=== PATIENT | female | born 1965 | race Caucasian/White ===

== ENCOUNTER 2017-08-29 07:23 | Outpatient (CLI) | payer BC ==
--- NOTE | 2017-08-29 10:00 | CT ---
CT OF THE ABDOMEN AND PELVIS WITH AND WITHOUT CONTRAST: DATE: 08/29/17. COMPARISON: None. HISTORY: Crohn's disease, left upper quadrant pain. TECHNIQUE: Serial axial CT imaging obtained at 5 mm intervals from the lung bases through pubic symphysis with a nd without IV contrast, using VoLumen oral contrast for CT enterography protocol. FINDINGS: The visualized lung bases are unremarkable. Cholecystectomy clips are present. There is no free int raperitoneal air or fluid. The uterus is surgically absent. The precontrast imaging demonstrates no evidence for nephrolithiasis. There is subtle peripheral con tour irregularity involving the liver. There are also subtle varices in the perihepatic region. Fin dings are suspicious for mild cirrhotic change. No focal hepatic lesion is seen. There is a right paracardiac node measuring in the 9 mm range, stable. The spleen, pancreas, and adrenal glands are unremarkable. There is a duodenal diverticulum noted. The left kidney is unremarkable. There is a lesion within the mid pole of the right kidney, measuring 2.1 cm in transverse dimension, with precontrast Hounsfield units of 64. On post contrast imaging, this lesion demonstrates Hounsfie ld units ranging from 75 to 80 suggesting a mild degree of enhancement. This may be secondary to a t hin internal enhancing septation, as seen on coronal image 93. The uterus appears surgically absent. There is extensive diverticulosis of the descending colon and sigmoid colon with no evidence for diverticulitis. There is a suture line associated with the distal colon at the junction with the small bowel. There is no evidence for small bowel inflammatory change or obstruction. There is scattered atherosclerotic calcification of the abdominal aorta and its branches. There is n o lymphadenopathy in the abdomen or pelvis. The osseous structures demonstrate no acute findings. T here is degenerative change involving the lower lumbar spine including the facet joints. The right renal lesion described above, today measuring approximately 2.1 cm, measured approximately 9 mm on 04/16/13. IMPRESSION: 1. Peripheral contour irregularity of the liver with adjacent small varices. This suggests cirrhoti c change. 2. Nonspecific right renal lesion which is hyperdense on precontrast imaging and demonstrates mild i nternal enhancement, probably on the basis of an enhancing internal septation. This is felt to likel y be a hyperdense 2F cyst. However, further imaging assessment is advised for full characterization. Recommend an abdominal MRI with and without contrast for complete assessment of the enlarging right renal lesion. 3. No evidence for bowel obstruction or bowel inflammatory change. CODE T POS: [facility]
[2017-08-29] MEDS ORDERED: Iopamidol 370 76% 100 ML VIAL ONE (14:25)
== END 2017-08-29 07:24 | disposition home or self-care (01) ==
LOC: CT 07:23
PROVIDERS: ATTEND Internal Medicine Gastroenterology
DX: K50.00 Crohn's disease of small intestine without complications (principal); R13.10 Dysphagia, unspecified; R10.12 Left upper quadrant pain; K76.89 Other specified diseases of liver; N28.89 Other specified disorders of kidney and ureter
CPT/HCPCS: 74178

== ENCOUNTER 2018-09-16 18:07 | Inpatient (IN) | payer BC ==
[~2018-09-16 18:07] MED LIST: ISOVUE-370 76%-LOCM 1 ML ONE; Iopamidol 370 76% 50 ML VIAL FS ONE
[2018-09-16 19:15] LABS: #Eosinphils 0.2 thou/uL (0.0-0.7); #Lymphocytes 2.8 thou/uL (1.20-3.40); #Monocytes 0.8 thou/uL (0.11-0.59); #Neutrophils 7.3 thou/uL (1.40-6.50); %Basophils 0.2 % (0.0-1.0); %Eosinophils 1.8 % (0.0-10.0); %Lymphocytes 24.8 % (21.0-51.0); %Monocytes 7.4 % (0.0-10.0); %Neutrophils 65.8 % (42.0-75.0); Hemoglobin 13.1 g/dL (12.0-16.0); Mean Corpuscular HGB CONC 32.7 g/dL (32.0-36.0); Mean Corpuscular Hemoglobin 32.6 pg (27.0-31.0); Mean Corpuscular Volume 99.9 fL (78.0-98.0); Mean Platelet Volume 8.9 fL (7.4-10.4); Platelet Count 160 thou/uL (130-400); RBC Distribution Width 13.4 % (11.5-14.5); Red Blood Cell (RBC) Count 4.02 mill/uL (4.20-5.40); White Blood Cell (WBC) Count 11.1 thou/uL (4.8-10.8)
[2018-09-16 19:40] LABS: ALT (SGPT) 25 U/L (8-55); AST (SGOT) 24 U/L (5-34); Albumin 4.5 g/dL (3.5-5.0); Alkaline Phosphatase 72 U/L (40-150); Anion Gap 15 mmol/L (10-20); BUN (Urea Nitrogen) 12 mg/dL (9.8-20.1); Bilirubin, Total 0.4 mg/dL (0.2-1.2); Calc. Creatinine Clearance 0 mL/min (70-130); Calcium 9.6 mg/dL (7.8-10.44); Carbon Dioxide 22 mmol/L (22-29); Chloride 105 mmol/L (98-107); Estimated GFR-MDRD 77; Globulin 3.3 g/dL (2.4-3.5); Glucose 115 mg/dL (70-105); Potassium 3.7 mmol/L (3.5-5.1); Protein, Total 7.8 g/dL (6.0-8.3); Sodium 138 mmol/L (136-145)
[2018-09-16 20:19] LABS: Bilirubin Negative (Negative); Blood, Urine Negative (Negative); Clarity CLEAR (Clear); Glucose, Urine (Dipstick) Negative (Negative); Leukocyte Negative (Negative); Nitrite Negative (Negative); Protein, Urine (Dipstick) Negative (Neg-Trace); Specific Gravity, Urine 1.011 (1.002-1.036); Urobilinogen 0.2 mg/dL (0.2-1.0); pH, Urine 5.5 (5.0-9.0)
[2018-09-16] MEDS ORDERED: Ketorolac Tromethamine 30 MG/ML VIAL ONE (20:35)
[2018-09-16] MEDS ORDERED: Ondansetron PF 4 MG/2 ML Vial ONE (20:35)
[2018-09-16] MEDS ORDERED: Dexamethasone 10 MG/ML VIAL ONE (20:48)
--- NOTE | 2018-09-16 23:17 | CT ---
CT ABDOMEN AND PELVIS WITH CONTRAST: 09/16/18 HISTORY: Abdominal pain. COMPARISON: CT 08/01/17. FINDINGS: Lung bases are clear. No pericardial effusion. The spleen, liver, and pancreas are all unremarkable. The diverticulum of the third portion of the du odenum. The aortic contour is nonaneurysmal. There is inflammatory change along a large diverticulum of the sigmoid colon. There is also abnormal wall thickening circumferentially prior to and after the diverticulum which is new from the compariso n examination. There is concern for underlying possible malignant process versus colitis. Right renal interpolar hypodensity is similar. No retroperitoneal adenopathy. Aortoiliac contour is nonaneurysmal. IMPRESSION: 1. Abnormal wall thickening of the sigmoid colon which can be sequela of Crohn's disease given history, although colonoscopic evaluation is recommended as an underlying malignancy is of concern. 2. Mild inflammation along a large diverticulum of the sigmoid colon without perforation or absc ess formation. 3. Mild hyperemia of the sigmoid colon concerning for possible current active Crohn's disease. 4. The hypodensity of the right kidney on the coronal images has internal enhancement. This hypo density is new from 2013 and has grown since 2016 concerning for a low grade malignancy. Code T POS: [facility]
[2018-09-16] MEDS ORDERED: metroNIDAZOLE 500 MG/100 ML BAG ONE (23:29)
[2018-09-16] MEDS ORDERED: cefTRIAXone\\ROCEPHIN 1 GM VIAL ONE (23:29)
[2018-09-16] MEDS ORDERED: Zolpidem Tartrate 5 MG TAB PO PRN (23:46)
[2018-09-17] MEDS ORDERED: HumaLOG 300 UNITS/3 ML VIAL SC PRN ×2 (00:01)
[2018-09-17] MEDS ORDERED: Dextrose 50% Abboject 50 ML SYRINGE SLOW IVP PRN (00:01)
[2018-09-17] MEDS ORDERED: Dextrose 5% in Water 1,000 ML IV PRN (00:01)
[2018-09-17] MEDS: Acetaminophen 325 MG TAB PO PRN ×3 (01:12→14:34)
[2018-09-17 01:41] VITALS: BMI 30.7
--- NOTE | 2018-09-17 02:32 | HP ---
CHIEF COMPLAINT: Left lower quadrant pain as well as abdominal pain. HISTORY OF PRESENT ILLNESS: This is a 52-year-old female who presented to the hospital complaining of left lower quadrant pain. The patient had a CT scan done in the ER and was found to have normal bowel wall thickening and likely cause is for Crohn disease. The patient also had inflammatory and diverticulitis disease noted. The patient was seen in the ER, stated that she is having left lower quadrant pain. The patient states that she has had this issue before, however, is just due to Crohn flare ups as this is the first time she has a diverticular disease. The patient, otherwise, denies any nausea, vomiting, diarrhea, constipation, chest pain, fevers, chills, or shortness of breath. The patient states that she has no alleviating or aggravating factors. Denies any other associated symptoms or complaints. The patient is seen and examined in the ER. No family at bedside. All systems reviewed. All questions answered. REVIEW OF SYSTEMS: All systems reviewed, pertinent positive in HPI, otherwise negative. ALLERGIES: ALLERGIES TO CIPRO. SEE ALLERGY LIST. HOME MEDICATIONS: See MAR. PAST MEDICAL HISTORY: Crohn's, hypertension, and diabetes. FAMILY HISTORY: Positive for hypertension and diabetes. SOCIAL HISTORY: Denies alcohol, does smoke about half-pack cigarettes a day. PHYSICAL EXAMINATION: VITAL SIGNS: Blood pressure 130/76, pulse 97, respiratory rate of 19, temperature of 101.1, and O2 saturations of 96% on room air. GENERAL: The patient is lying in bed comfortably, in no acute distress. HEENT: Pupils are equal, round, and reactive to light and accommodation. Extraocular muscles intact. Oral cavity moist and pink. NECK: Supple, mobile, and nontender. Thyroid appreciated. CARDIOVASCULAR: S1 and S2. No murmurs, rubs, or gallops appreciated. Sinus tachycardia. RESPIRATORY: Clear to auscultation bilaterally. No increase in AP diameter. No respiratory distress. ABDOMEN: Positive bowel sounds. Left lower quadrant tenderness to deep palpation as well as no rebound or guarding. EXTREMITIES: 2+ peripheral pulses noted. No cyanosis, clubbing, or edema noted. NEUROLOGICAL: Cranial nerves II through XII intact. No loss of motor or sensory function. LABORATORY DATA: CBC within normal limits. Basic metabolic panel within normal limits. Urinalysis within normal limits. CT scan of abdomen, results as per HPI, explained above. ASSESSMENT: 1. Diverticulitis. 2. Crohn's. 3. Diabetes. 4. Hypertension. 5. Hyperlipidemia. PLAN: At this point in time, we will admit the patient to internal medicine team. We will start the patient on IV antibiotics. We will consult Dr. Gilbert, who is outpatient GI doctor. Continue her treatments with azathioprine as well as prednisone for her Crohn's. We will also start the patient on Flagyl for her diverticular disease. Blood cultures ordered and pending. Labs in the morning. The patient is stable and wishes to remain a full code. Case and plan were discussed the patient at length. No family at bedside. She understood and agreed with this plan. Job ID: [id number]
[2018-09-17] MEDS: metroNIDAZOLE 500 MG in Premix Bag 1 BAG IVPB SCH ×3 (05:11→22:28)
[2018-09-17 05:47] LABS: Anion Gap 14 mmol/L (10-20); BUN (Urea Nitrogen) 12 mg/dL (9.8-20.1); Calc. Creatinine Clearance 112 mL/min (70-130); Calcium 9.1 mg/dL (7.8-10.44); Carbon Dioxide 21 mmol/L (22-29); Chloride 107 mmol/L (98-107); Estimated GFR-MDRD 79; Glucose 260 mg/dL (70-105); Potassium 3.9 mmol/L (3.5-5.1); Sodium 138 mmol/L (136-145)
[2018-09-17 05:50] LABS: #Lymphocytes 0.8 thou/uL (1.20-3.40); #Monocytes 0.2 thou/uL (0.11-0.59); #Neutrophils 6.6 thou/uL (1.40-6.50); %Basophils 0.4 % (0.0-1.0); %Eosinophils 0.3 % (0.0-10.0); %Lymphocytes 10.6 % (21.0-51.0); %Monocytes 2.6 % (0.0-10.0); %Neutrophils 86.1 % (42.0-75.0); Hemoglobin 11.8 g/dL (12.0-16.0); Mean Corpuscular HGB CONC 33.6 g/dL (32.0-36.0); Mean Corpuscular Hemoglobin 33.5 pg (27.0-31.0); Mean Corpuscular Volume 99.7 fL (78.0-98.0); Mean Platelet Volume 8.9 fL (7.4-10.4); Platelet Count 129 thou/uL (130-400); RBC Distribution Width 13.3 % (11.5-14.5); Red Blood Cell (RBC) Count 3.54 mill/uL (4.20-5.40); White Blood Cell (WBC) Count 7.7 thou/uL (4.8-10.8)
[2018-09-17] MEDS ORDERED: predniSONE 20 MG TAB PO SCH (08:00)
[2018-09-17] MEDS ORDERED: azaTHIOprine 50 MG TAB PO SCH (09:00)
--- NOTE | 2018-09-17 14:07 | CON ---
DATE OF CONSULTATION: 09/17/2018 CHIEF COMPLAINT: Abdominal pain. HISTORY OF PRESENT ILLNESS: Ms. Griffin is a 52-year-old woman with a history of fibrostenotic Crohn's disease, status post ileocecectomy in March of 2011. She has most recently been treated with Stelara and reduce dose of azathioprine. She has been in clinical remission over the last few months and her faecal calprotectin was normal. She had a colonoscopy and EGD in 08/2017 that showed no evidence of active inflammatory bowel disease. She has been doing well in the last few months, until one week ago she started developing cramping, aching, left lower quadrant abdominal pain. This progressively worsened until yesterday morning. She started spiking fever, it is over 102. She has had no nausea or vomiting with this, but did have abdominal distention and bloating. She has had liquidy stools twice per day and yesterday she had liquidy stool with urgency and had an episode of loss of consciousness. She has had no blood in the stool. Her weight has been stable. She was incidentally noted to have an enlarging renal lesion by CT scan on presentation. PAST MEDICAL HISTORY: 1. Fibrostenotic Crohn's disease on chronic immunosuppression. 2. Cirrhosis of the liver likely secondary to fatty liver disease. There is no alcohol use. 3. Gastroesophageal reflux disease. 4. Diabetes mellitus. 5. Hypertension. 6. Hypothyroidism. PAST SURGICAL HISTORY: 1. Ileocecectomy. 2. Cholecystectomy. 3. Hysterectomy. FAMILY HISTORY: Negative for GI malignancy or liver disease. SOCIAL HISTORY: She smokes a 4th to one half pack daily. No alcohol. No drugs. ALLERGIES: CODEINE, DEMEROL, FENTANYL, MORPHINE, REMICADE, STADOL, SULFA, VERSED. OUTPATIENT MEDICATIONS: Aspirin, azathioprine 100 mg daily, Colestid 1 g twice daily, glimepiride, lisinopril, metformin, pantoprazole 40 mg daily, Stelara 90 mg once every 8 weeks, vitamin C. REVIEW OF SYSTEMS: Negative x10 systems reviewed except as stated in the history of present illness. PHYSICAL EXAMINATION: VITAL SIGNS: Temperature 98.1, pulse 63, blood pressure 108/71. GENERAL: She is in no acute distress. She is alert and oriented x3. HEENT: Eyes have no scleral icterus. Oropharynx is clear without lesions. No cervical or supraclavicular lymphadenopathy. LUNGS: Clear to auscultation bilaterally. HEART: Regular rate and rhythm without murmur. ABDOMEN: Soft. She is tender to palpation diffusely, more so in the left lower quadrant. At baseline, even when she is doing well, she has extreme tenderness to palpation. Her bowel sounds are present. EXTREMITIES: No lower extremity edema. NEUROLOGIC: Cranial nerves are grossly intact. LABORATORY DATA: White blood cell count is 7.7, down from 11.1 yesterday, hemoglobin 11.8, platelets 129. Her creatinine is 0.76, bilirubin 0.4, AST 24, ALT 25, alkaline phosphatase 72, albumin 4.5. IMPRESSION: 1. Left lower quadrant pain with inflammatory changes by CT scan around the diverticular segment of the sigmoid colon. She appears to have diverticulitis. Her Crohn's has been in remission up to this point. However, we did drop her azathioprine from 200 mg daily to 100 mg daily couple of months ago. I would at this point hold steroids and just treat with antibiotics. If she continues to improve with antibiotics alone, then hopefully we can avoid a course of steroids unnecessarily. We will check stool studies including Clostridium difficile and culture and faecal calprotectin. 2. Cirrhosis of the liver is well compensated, likely secondary to previous nonalcoholic steatohepatitis. 3. Diabetes mellitus. RECOMMENDATIONS: 1. Full liquid diet. 2. We will discontinue prednisone for now. 3. Continue metronidazole 500 mg 3 times daily and ceftriaxone 2 g once daily. She is allergic to ciprofloxacin. 4. Stool for culture, ova and parasites, C. diff and faecal protectin. 5. Further treatment plan based on her clinical course. Job ID: [id number]
[2018-09-17] MEDS: azaTHIOprine 50 MG TAB PO SCH (14:21)
[2018-09-17] MEDS: Sodium Chloride 0.9% 1,000 ML IV SCH (14:21)
--- NOTE | 2018-09-17 14:30 | PDOC.PN ---
- Subjective Encounter Start Date: 09/17/18 Encounter Start Time: 14:22 Subjective: abd pain improved, minimal diarrhea - Objective MAR Reviewed: Yes Vital Signs & Weight: Vital Signs (12 hours) Temp Pulse Resp BP BP Pulse Ox 09/17/18 11:39 98.1 F 63 18 108/71 99 09/17/18 08:20 99 09/17/18 07:41 97.9 F 65 18 114/60 99 09/17/18 04:54 97.8 F 71 16 107/65 96 Weight Weight 184 lb 12.8 oz Result Diagrams: 09/17/18 05:17 09/17/18 05:17 Additional Labs: Accuchecks 09/17/18 06:22 POC Glucose 248 H Phys Exam - Physical Examination Neck: no JVD Respiratory: clear to auscultation bilateral Cardiovascular: RRR, no significant murmur Gastrointestinal: positive bowel sounds tender, tk LLQ Musculoskeletal: no edema Dx/Plan (1) Diverticula of colon Code(s): K57.30 - DVRTCLOS OF LG INT W/O PERFORATION OR ABSCESS W/O BLEEDING Status: Acute (2) Crohns disease Code(s): K50.90 - CROHN'S DISEASE, UNSPECIFIED, WITHOUT COMPLICATIONS Status: Chronic Qualifiers: Gastrointestinal tract location: small intestine Digestive disease complication type: unspecified complication Qualified Code(s): K50.019 - Crohn 's disease of small intestine with unspecified complications (3) Abdominal pain Code(s): R10.9 - UNSPECIFIED ABDOMINAL PAIN Status: Acute Qualifiers: Abdominal location: left lower quadrant Qualified Code(s): R10.32 - Left lower quadrant pain (4) HTN (hypertension) Code(s): I10 - ESSENTIAL (PRIMARY) HYPERTENSION Status: Chronic Qualifiers: Hypertension type: essential hypertension Qualified Code(s): I10 - Essential (primary) hypertension (5) DM type 2 (diabetes mellitus, type 2) Status: Chronic Qualifiers: Diabetes mellitus snf insulin use: without terminal block assembler use Diabetes mellitus complication status: without complication Qualified Code(s): E11.9 - Type 2 diabetes mellitus without complications - Plan cont rocephin/flagyl iv -: cont accu/ss -: reinstitute amaryl today/ metformin tomorrow * .
[2018-09-17] MEDS: Glimepiride 4 MG TAB PO SCH (21:36)
--- NOTE | 2018-09-17 21:42 | CON ---
DATE OF CONSULTATION: 09/17/2018 REASON FOR CONSULTATION: Consultation was requested for renal mass. HISTORY OF PRESENT ILLNESS: The patient is a 52-year-old female, who was admitted with left lower quadrant pain, cramping, and fever, who is being worked up by GI. She does have a known history of Crohn's, so they are working up between inflammatory bowel disease versus diverticulitis. Overall, her abdominal pain and bloating are significantly better. She is still significantly tender, but overall feeling better with liquid stools, but less often unable to walk in the halls. Normally, she has frequency 5 to 6 hours and we reviewed how she needs to void more often up to 2 to 3 hours especially if there is concern for urinary infections. She has no history of stones, hematuria, or leakage, but she does have a history of prior UTIs, none in the last year. She is already taking cranberry tablets and sometimes Azo when there are concerns. Reviewed UTI prevention in detail to include cranberry extract tablets and Estrace, the latter of which we would not recommend at this time based on her infrequency of infections from urinary standpoint. She is known to have a lesion in the kidney since 2016 imaging and now has 2 more scans, the most recent of which was upon her admission yesterday and we reviewed these findings in detail. PAST MEDICAL HISTORY: Significant for Crohn's diagnosed around 2009, cirrhosis without any laboratory or clinical symptoms other than imaging, GERD, diabetes diagnosed about 2014. She denies hypertension. She takes lisinopril for kidney protection. PAST SURGICAL HISTORY: Includes ileectomy in 2010 and prior gallbladder resection. PAST OB HISTORY: Includes 2 vaginal deliveries. PAST ICT SUPPORT ENGINEER HISTORY: Included total vaginal hysterectomy and one oophorectomy done for bleeding issues not cancer. SOCIAL HISTORY: Reveals a quarter to half pack a day for 30 years. She has never smoked significantly more than that. She does not drink or use drugs. ALLERGIES: INCLUDE SULFA, WHICH GIVES HER RASH AND ITCH AND MULTIPLE DIFFERENT PAIN MEDICATIONS. REVIEW OF SYSTEMS: Shows she had a colonoscopy in August 2017 that showed no active inflammation. She had a mammogram in 2018 that was normal. She had a remote Pap smear that was normal. She has a known rectocele that affects her urination only when she evacuates her bowels, but otherwise is not problematic. She had chest pain yesterday when her abdomen was significantly distended, but none now. She has no cough or shortness of breath. She did have significant nausea, but without vomiting and she was bloated and distended. She also passed out with pain. She has had no blood in her stools, but they have been significantly liquid. MEDICATIONS: Include: 1. Aspirin. 2. Azathioprine. 3. Colestid. 4. Glimepiride. 5. Metformin. 6. Lisinopril. 7. Stelara. 8. Vitamin C. 9. Pantoprazole. FAMILY HISTORY: Mother at 69 of heart disease. Of note, she had her first SC at 43. Father at 77 of mesothelioma. Neither mom or siblings had cancer. PHYSICAL EXAMINATION: GENERAL: She is lying flat on the bed and is most comfortable in this position as opposed to sitting up. She has no diaphoresis or jaundice. VITAL SIGNS: T-max 98.1, heart rate 63, blood pressure 108/71, and saturating 99% on room air. Urine output has been listed as toilet. NECK: She has no JVD. She is in no apparent distress. HEART: Regular rate and rhythm. No murmurs, gallops, or rubs. LUNGS: Clear to auscultation bilaterally. ABDOMEN: Normoactive bowel sounds. It was mildly tender throughout without any rebound, tenderness, or peritoneal signs. Scars were noted including the right hand assist port that had wound healing troubles and now contraction, but no obvious hernia. She had no lower extremity edema, but a scar after trauma on her left lower extremity. LABORATORY VALUES: Reveal hemoglobin and hematocrit that are slightly anemic at 11.8 and 35.3, white count is come down from 11 to 7. BUN and creatinine are 12 and 0.76. Urinalysis from admission was negative by dip. Three CT scans were reviewed, one from October 06, 2015, that had contrast and another from August 29, 2017, that had both without and with contrast in the 3rd from August 2018, with contrast only. This is most likely a hyperdense cyst. However, on the Bosniak scale, it is likely a tube, but with slight uptake from before and after scan, such that Hounsfield units in 2016 are 60 to 80 with contrast, Hounsfield units in 2018 were 62 before and then 75 to 80 after. In-house with units with contrast in the most recent skin were around 70 and the growth patterns show no lesion that were 1.2 x 1.7 x 1.8 cm in 2016 and then 1.7 x 1.8 x 1.9 cm in 2018 and now 1.8 x 1.9 x 1.9 cm, giving us a growth rate in the last year 1 to 2 mm. Technically, this is a Bosniak II-III cyst given it's likely a hyperdense lesion but there is some minimal uptake with HFUs. We reviewed all these findings, concerning lesions, indications for biopsy, concerning growth rates, Bosniak scales, and monitoring at this time. I suspect this is a benign lesion, but cannot give a definitive conclusion of such with its minimal growth rate any years time. I would recommend repeating a scan without and with contrast in 1 year. At this time, I would not recommend any further studies or intervention. I reviewed all of this with her in detail and I reassured her, but did say that I would definitely want to see her in followup, but again I would put of repeat imaging for a year. We reviewed this as well as her immunosuppressants and how these can have some concern for increasing growth rate of cancers, but at this time without more definitive evidence and known benefit she gets clinically from them, I would recommend that Dr. Gilbert prescribe his Crohn's medications as indicated for her GI symptoms at this time, especially since the growth rate of this mass has been minimal and she has been on these medicines for quite some time. Job ID: [id number]
[2018-09-18] MEDS: cefTRIAXone\\ROCEPHIN 2 GM in Sodium Chloride 0.9% 100 ML IVPB SCH ×2 (00:30→23:16)
[2018-09-18] MEDS: Sodium Chloride 0.9% 1,000 ML IV SCH ×3 (00:34→21:04)
[2018-09-18] MEDS: metroNIDAZOLE 500 MG in Premix Bag 1 BAG IVPB SCH ×3 (05:17→21:01)
[2018-09-18] MEDS: azaTHIOprine 50 MG TAB PO SCH (09:59)
[2018-09-18] MEDS: Ascorbic Acid 500 mg Chewable Tablet PO SCH (10:01)
[2018-09-18] MEDS: Glimepiride 4 MG TAB PO SCH ×2 (10:02→21:02)
[2018-09-18] MEDS: valACYclovir 500 MG TAB PO SCH (10:03)
[2018-09-18] MEDS: Lisinopril 10 MG TAB PO SCH (10:03)
[2018-09-18 11:01] LABS: Ref Lab Test Ordered FECAL CALPROTECTIN; Reference Lab Name LABCORP
[2018-09-18] MEDS: Acetaminophen 325 MG TAB PO SCH ×3 (12:24→21:02)
[2018-09-18] MEDS: Ketorolac Tromethamine 30 MG/ML VIAL IVP PRN ×2 (12:25→21:08)
[2018-09-18] MEDS ORDERED: diphenhydrAMINE 25 MG CAP PO PRN (14:44)
[2018-09-18] MEDS: HYDROmorphone 2 MG TAB PO PRN ×2 (14:56→19:06)
[2018-09-18] MEDS: Ondansetron PF 4 MG/2 ML Vial IVP PRN (21:44)
--- NOTE | 2018-09-18 21:59 | PDOC.PN ---
- Subjective Encounter Start Date: 09/18/18 Encounter Start Time: 13:00 Patient seen and examined for Acute Diverticulitis. Abd pain worsening. Diarrhea /Nausea +. No other complaints. No overnight events - Objective MAR Reviewed: Yes Vital Signs & Weight: Vital Signs (12 hours) Temp Pulse Resp BP BP BP Pulse Ox 09/18/18 20:38 99 09/18/18 20:05 98.4 F 63 16 114/70 99 09/18/18 15:45 98.1 F 64 16 101/66 97 09/18/18 11:16 98.3 F 67 16 111/63 99 09/18/18 10:03 114/74 Weight Weight 184 lb 12.8 oz I&O: 09/17/18 09/18/18 09/19/18 06:59 06:59 06:59 Intake Total 2900 1750 Balance 2900 1750 Result Diagrams: 09/17/18 05:17 09/17/18 05:17 Additional Labs: Accuchecks 09/18/18 09/18/18 09/18/18 20:21 16:12 11:43 POC Glucose 82 120 H 148 H 09/18/18 05:39 POC Glucose 109 Radiology Reviewed by me: Yes (CT abd - Diverticulitis) Phys Exam - Physical Examination Mild distress due to abd pain Respiratory: no wheezing, no rhonchi Cardiovascular: RRR, no rub Gastrointestinal: soft, positive bowel sounds lower quad tenderness, no guarding/rigidity Musculoskeletal: no edema Neurological: moves all 4 limbs Dx/Plan - Plan DVT proph w/SCDs 1. Sepsis due to Acute Diverticulitis 2. Cryptosporidium infection 3. h/o Crohns disease 4. Obesity BMI 30.8 5. Abd pain due to #1 6. HTN 7. GERD 8. DM2 9. Thrombocytopenia/CKD 2/Other issues per previous notes PLAN: Cont IV Atbx Add Alinia Pain control with Toradol and PO Dilaudid - Unable to tolerate other pain meds Cont IVF AM labs Cont sliding scale Cont other meds as below GI input appreciated Review of Systems - Review of Systems Respiratory: negative: Cough, Dry, Shortness of Breath, Hemoptysis, SOB with Excertion, Pleuritic Pain, Sputum, Wheezing Cardiovascular: negative: chest pain, palpitations, orthopnea, paroxysmal nocturnal dyspnea, edema, light headedness, other - Medications/Allergies Allergies/Adverse Reactions: Allergies Allergy/AdvReac Type Severity Reaction Status Date / Time ciprofloxacin Allergy Severe Short of Verified 04/19/13 15:37 Breath butorphanol tartrate Allergy Verified 04/16/13 19:11 [From Stadol] hydrocodone bitartrate Allergy Verified 04/16/13 19:37 [From Vicodin] meperidine HCl [From Demerol] Allergy Verified 04/16/13 19:11 morphine Allergy Verified 04/16/13 19:11 Medications: Current Medications Acetaminophen (Tylenol) 650 mg PO Q4H PRN PRN Reason: Headache/Fever/Mild Pain (1-3) Last Admin: 09/17/18 14:34 Dose: 650 mg Acetaminophen (Tylenol) 650 mg PO QID [facility] Last Admin: 09/18/18 21:02 Dose: 650 mg Ascorbic Acid (Vitamin C) 1,000 mg PO QAM [facility] Last Admin: 09/18/18 10:01 Dose: 1,000 mg Azathioprine (Imuran) 100 mg PO DAILY [facility] Last Admin: 09/18/18 09:59 Dose: 100 mg Dextrose/Water (Dextrose 50%) 25 gm SLOW IVP PRN PRN PRN Reason: Hypoglycemia Diphenhydramine HCl (Benadryl) 25 mg PO Q6H PRN PRN Reason: Itching & Insomnia Glimepiride (Amaryl) 4 mg PO BID [facility] Last Admin: 09/18/18 21:02 Dose: 4 mg Glucagon (Glucagon) 1 mg IM PRN PRN PRN Reason: Hypoglycemia Hydromorphone HCl (Dilaudid) 2 mg PO Q4H PRN PRN Reason: Severe Pain (7-10) Last Admin: 09/18/18 19:06 Dose: 2 mg Metronidazole 500 mg/ Device 100 mls @ 100 mls/hr IVPB Q8HR [facility] Last Admin: 09/18/18 21:01 Dose: 100 mls Dextrose/Water (D5w) 1,000 mls @ 0 mls/hr IV .Q0M PRN PRN Reason: Hypoglycemia Ceftriaxone Sodium 2 gm/ (Sodium Chloride) 100 mls @ 200 mls/hr IVPB Q24HR [facility] Last Admin: 09/18/18 00:30 Dose: 100 mls Sodium Chloride (Normal Saline 0.9%) 1,000 mls @ 100 mls/hr IV .Q10H [facility] Last Admin: 09/18/18 21:04 Dose: Not Given Insulin Human Lispro (Humalog) 0 units SC .MILD SLIDING SCALE PRN PRN Reason: Mild Correctional Scale Insulin Human Lispro (Humalog) 0 units SC .BEDTIME SLIDING SC PRN PRN Reason: Bedtime Correctional Scale Ketorolac Tromethamine (Toradol) 15 mg IVP Q6H PRN PRN Reason: Pain Stop: 09/23/18 12:11 Last Admin: 09/18/18 21:08 Dose: 15 mg Lisinopril (Zestril) 10 mg PO DAILY [facility] Last Admin: 09/18/18 10:03 Dose: 10 mg Nitazoxanide (Alinia) 500 mg PO BID [facility] Last Admin: 09/18/18 21:02 Dose: 500 mg Ondansetron HCl (Zofran) 4 mg IVP Q6H PRN PRN Reason: Nausea/Vomiting Last Admin: 09/18/18 21:44 Dose: 4 mg Pantoprazole Sodium (Protonix) 40 mg PO DAILY [facility] Last Admin: 09/18/18 10:03 Dose: 40 mg Sodium Chloride (Flush - Normal Saline) 10 ml IVF Q12HR PRN PRN Reason: Saline Flush Valacyclovir HCl (Valtrex) 500 mg PO DAILY [facility] Last Admin: 09/18/18 10:03 Dose: 500 mg Zolpidem Tartrate (Ambien) 5 mg PO HSPRN PRN PRN Reason: Insomnia
--- NOTE | 2018-09-18 23:40 | PRG ---
DATE OF SERVICE: 09/18/2018 SUBJECTIVE: Ms. Griffin started having pain earlier this morning and has had significant abdominal pain during the day today and ultimately required taking morphine for it. She has had around 6 liquidy stools today that were nonbloody. No chest pain or shortness of breath. PHYSICAL EXAMINATION: VITAL SIGNS: Temperature 98.4, pulse 63, blood pressure 114/70. GENERAL: She is in no acute distress. Alert and oriented x3. LUNGS: Clear to auscultation bilaterally. HEART: Regular rate and rhythm without murmur. ABDOMEN: Soft. She is tender to palpation diffusely. Bowel sounds are present. EXTREMITIES: No lower extremity edema. LABORATORY DATA: White blood cell count has improved from 11.1 to 7.7, hemoglobin 11.8, platelets 129, creatinine 0.76. IMPRESSION: 1. Acute diverticulitis. The CT scan findings are most consistent with acute diverticulitis. We will continue to treat this with antibiotics. 2. Renal lesion. This is been evaluated by Dr. Peterson and followup CT in 1 year is recommended. 3. Crohn's disease. She has been in remission on Stelara every 8 weeks and azathioprine 100 mg daily. She did have clinical improvement after receiving steroids in the ER initially the night before last. It is possible that she has developed new left-sided colonic Crohn's, but overall I think it is more likely that she has acute diverticulitis. If she fails to improve with the antibiotics and the pain continues to worsen, then colonoscopy or flex sig can be considered to assess for mucosal disease. However, ideally, we would avoid colonoscopy in the setting of diverticulitis to reduce the risk of perforation. For now, we will continue to hold the steroids and treat with antibiotics. 4. Stool was positive for Cryptosporidium antigen. Given her chronic immunosuppression and this will require 2 weeks of treatment period, she has been started on Alinia twice daily. 5. Cirrhosis of the liver, appears well compensated. RECOMMENDATIONS: 1. Continue ceftriaxone and metronidazole. 2. Continue nitazoxanide 500 mg twice daily for 14 days. 3. Continue azathioprine. 4. She is on a full liquid diet, but is really not tolerating much at this point. We will continue the current diet. Job ID: [id number]
[2018-09-19 04:57] LABS: #Eosinphils 0.1 thou/uL (0.0-0.7); #Lymphocytes 1.2 thou/uL (1.20-3.40); #Monocytes 0.5 thou/uL (0.11-0.59); %Basophils 0.2 % (0.0-1.0); %Eosinophils 2.1 % (0.0-10.0); %Lymphocytes 19.6 % (21.0-51.0); %Monocytes 9.1 % (0.0-10.0); %Neutrophils 68.9 % (42.0-75.0); Mean Corpuscular HGB CONC 33.4 g/dL (32.0-36.0); Mean Corpuscular Hemoglobin 33.4 pg (27.0-31.0); Mean Corpuscular Volume 99.8 fL (78.0-98.0); Mean Platelet Volume 9.4 fL (7.4-10.4); Platelet Count 127 thou/uL (130-400); RBC Distribution Width 13.3 % (11.5-14.5); Red Blood Cell (RBC) Count 3.29 mill/uL (4.20-5.40); White Blood Cell (WBC) Count 5.9 thou/uL (4.8-10.8)
[2018-09-19] MEDS: metroNIDAZOLE 500 MG in Premix Bag 1 BAG IVPB SCH ×3 (05:08→21:38)
[2018-09-19 05:15] LABS: Phosphorus 3.9 mg/dL (2.3-4.7)
[2018-09-19] MEDS: Sodium Chloride 0.9% 1,000 ML IV SCH ×2 (05:16→13:44)
[2018-09-19 05:24] LABS: ALT (SGPT) 15 U/L (8-55); AST (SGOT) 14 U/L (5-34); Albumin 3.4 g/dL (3.5-5.0); Alkaline Phosphatase 49 U/L (40-150); Anion Gap 12 mmol/L (10-20); BUN (Urea Nitrogen) 7 mg/dL (9.8-20.1); Bilirubin, Total 0.3 mg/dL (0.2-1.2); Calc. Creatinine Clearance 123 mL/min (70-130); Calcium 8.3 mg/dL (7.8-10.44); Carbon Dioxide 22 mmol/L (22-29); Chloride 110 mmol/L (98-107); Estimated GFR-MDRD 89; Globulin 2.4 g/dL (2.4-3.5); Glucose 120 mg/dL (70-105); Magnesium 1.6 mg/dL (1.6-2.6); Potassium 3.5 mmol/L (3.5-5.1); Protein, Total 5.8 g/dL (6.0-8.3); Sodium 140 mmol/L (136-145)
[2018-09-19] MEDS: Glimepiride 4 MG TAB PO SCH (08:18)
[2018-09-19] MEDS: valACYclovir 500 MG TAB PO SCH (08:18)
[2018-09-19] MEDS: Acetaminophen 325 MG TAB PO SCH ×4 (08:18→21:38)
[2018-09-19] MEDS: Ascorbic Acid 500 mg Chewable Tablet PO SCH (08:18)
[2018-09-19] MEDS: Lisinopril 10 MG TAB PO SCH (08:19)
[2018-09-19] MEDS: azaTHIOprine 50 MG TAB PO SCH (08:19)
[2018-09-19] MEDS: Ketorolac Tromethamine 30 MG/ML VIAL IVP PRN (10:45)
--- NOTE | 2018-09-19 16:48 | PRG ---
DATE OF SERVICE: 09/19/2018 SUBJECTIVE: Ms. Griffin had ongoing pain last night and she took Dilaudid, which did help significantly. Today, she has required no IV pain medication and she is feeling better overall. She has less abdominal distention and bloating. She is still having the diarrhea with 4 or 5 stools through the course of the day. OBJECTIVE: VITAL SIGNS: Temperature 98.5, pulse 76, and blood pressure 137/80. GENERAL: She is in no acute distress. Alert and oriented x3. HEENT: Eyes have no scleral icterus. LUNGS: Clear to auscultation bilaterally. HEART: Regular rate and rhythm without murmur. ABDOMEN: Soft, diffuse tenderness more so in the left lower quadrant. EXTREMITIES: No lower extremity edema. LABORATORY DATA: White blood cell count 5.9, hemoglobin 11.0, and platelets 127. Creatinine 0.69, albumin 3.4. IMPRESSION: 1. Sigmoid diverticulitis. 2. Cryptosporidium colitis. 3. Crohn disease. She has been in remission on Stelara and azathioprine up to this point. Last colonoscopy showed normal mucosa in the left colon. She did initially feel better after the Decadron in the emergency room, but she has been off the steroids for the last couple of days now. Her pain was worsening, but now she is doing better again today. 4. Cirrhosis of the liver, well compensated. RECOMMENDATIONS: 1. Continue ceftriaxone and metronidazole for diverticulitis. 2. Continue nitazoxanide for Cryptosporidium. Given her immune suppression, this should be a 2-week course. 3. Given that she is having symptomatic improvement today, we will continue with the current course of treatment. We will continue with full liquid diet. She is diabetic, but she normally does not take an artificial sweeteners because they upset her stomach and can cause diarrhea as well. We will try her back on a regular full liquid diet. 4. If her pain and diarrhea worsen, then the plan is to perform colonoscopy to evaluate for active Crohn disease. I will hold off this today as she is showing clinical improvement today. If she is unable to start advancing her diet tomorrow and her pain is worsening again, then we will schedule colonoscopy for Friday. Job ID: [id number]
--- NOTE | 2018-09-19 19:06 | PDOC.PN ---
- Subjective Encounter Start Date: 09/19/18 Encounter Start Time: 14:00 Patient seen and examined for Acute diverticulitis. Diarrhea +. Poor appetite. Lower abd pain +. Feels slightly better. No overnight events - Objective MAR Reviewed: Yes Vital Signs & Weight: Vital Signs (12 hours) Temp Pulse Resp BP BP Pulse Ox 09/19/18 15:20 98.1 F 79 16 142/80 H 97 09/19/18 11:39 98.5 F 76 14 137/80 97 09/19/18 10:51 98.5 F 09/19/18 08:19 134/78 94 L 09/19/18 07:26 99.1 F 90 14 134/78 94 L Weight Weight 184 lb 12.8 oz I&O: 09/18/18 09/19/18 09/20/18 06:59 06:59 06:59 Intake Total 2900 1750 1090 Balance 2900 1750 1090 Result Diagrams: 09/19/18 04:11 09/19/18 04:11 Additional Labs: Accuchecks 09/19/18 09/19/18 09/18/18 11:39 05:41 20:21 POC Glucose 105 126 H 82 Phys Exam - Physical Examination Constitutional: NAD Respiratory: no wheezing, no rhonchi Cardiovascular: RRR, no rub Gastrointestinal: soft, positive bowel sounds lower quad tenderness, no rebound/guarding Musculoskeletal: no edema Neurological: non-focal, moves all 4 limbs Dx/Plan - Plan out of bed/ambulate, DVT proph w/SCDs 1. Sepsis due to Acute Sigmoid Diverticulitis 2. Cryptosporidium colitis 3. h/o Crohns disease 4. Obesity BMI 30.8 5. Abd pain due to #1 6. HTN 7. GERD 8. DM2 9. Thrombocytopenia/CKD 2/Other issues per previous notes PLAN: Cont IV Ceftriaxone/Flagyl Cont Alinia Pain control Cont IVF - reduce rate to 70 ml/hr Reduce Amaryl dose to 2 mg BID Cont sliding scale and other meds as below Review of Systems - Review of Systems Respiratory: negative: Cough, Dry, Shortness of Breath, Hemoptysis, SOB with Excertion, Pleuritic Pain, Sputum, Wheezing Cardiovascular: negative: chest pain, palpitations, orthopnea, paroxysmal nocturnal dyspnea, edema, light headedness, other - Medications/Allergies Allergies/Adverse Reactions: Allergies Allergy/AdvReac Type Severity Reaction Status Date / Time ciprofloxacin Allergy Severe Short of Verified 04/19/13 15:37 Breath butorphanol tartrate Allergy Verified 04/16/13 19:11 [From Stadol] hydrocodone bitartrate Allergy Verified 04/16/13 19:37 [From Vicodin] meperidine HCl [From Demerol] Allergy Verified 04/16/13 19:11 morphine Allergy Verified 04/16/13 19:11 Medications: Current Medications Acetaminophen (Tylenol) 650 mg PO Q4H PRN PRN Reason: Headache/Fever/Mild Pain (1-3) Last Admin: 09/17/18 14:34 Dose: 650 mg Acetaminophen (Tylenol) 650 mg PO QID [facility] Last Admin: 09/19/18 16:39 Dose: 650 mg Ascorbic Acid (Vitamin C) 1,000 mg PO QAM [facility] Last Admin: 09/19/18 08:18 Dose: 1,000 mg Azathioprine (Imuran) 100 mg PO DAILY [facility] Last Admin: 09/19/18 08:19 Dose: 100 mg Cyanocobalamin (Vitamin B-12) 1,000 mcg PO DAILY [facility] Dextrose/Water (Dextrose 50%) 25 gm SLOW IVP PRN PRN PRN Reason: Hypoglycemia Diphenhydramine HCl (Benadryl) 25 mg PO Q6H PRN PRN Reason: Itching & Insomnia Folic Acid (Folvite) 1 mg PO DAILY [facility] Glimepiride (Amaryl) 4 mg PO BID [facility] Last Admin: 09/19/18 08:18 Dose: 4 mg Glucagon (Glucagon) 1 mg IM PRN PRN PRN Reason: Hypoglycemia Hydromorphone HCl (Dilaudid) 2 mg PO Q4H PRN PRN Reason: Severe Pain (7-10) Last Admin: 09/18/18 19:06 Dose: 2 mg Metronidazole 500 mg/ Device 100 mls @ 100 mls/hr IVPB Q8HR [facility] Last Admin: 09/19/18 13:47 Dose: 100 mls Dextrose/Water (D5w) 1,000 mls @ 0 mls/hr IV .Q0M PRN PRN Reason: Hypoglycemia Ceftriaxone Sodium 2 gm/ (Sodium Chloride) 100 mls @ 200 mls/hr IVPB Q24HR [facility] Last Admin: 09/18/18 23:16 Dose: 100 mls Sodium Chloride (Normal Saline 0.9%) 1,000 mls @ 70 mls/hr IV .[id number] [facility] Last Admin: 09/19/18 13:44 Dose: 1,000 mls Insulin Human Lispro (Humalog) 0 units SC .MILD SLIDING SCALE PRN PRN Reason: Mild Correctional Scale Insulin Human Lispro (Humalog) 0 units SC .BEDTIME SLIDING SC PRN PRN Reason: Bedtime Correctional Scale Ketorolac Tromethamine (Toradol) 15 mg IVP Q6H PRN PRN Reason: Pain Stop: 09/23/18 12:11 Last Admin: 09/19/18 10:45 Dose: 15 mg Lisinopril (Zestril) 10 mg PO DAILY [facility] Last Admin: 09/19/18 08:19 Dose: 10 mg Nitazoxanide (Alinia) 500 mg PO BID [facility] Last Admin: 09/19/18 08:18 Dose: 500 mg Ondansetron HCl (Zofran) 4 mg IVP Q6H PRN PRN Reason: Nausea/Vomiting Last Admin: 09/18/18 21:44 Dose: 4 mg Pantoprazole Sodium (Protonix) 40 mg PO DAILY [facility] Last Admin: 09/19/18 08:19 Dose: 40 mg Sodium Chloride (Flush - Normal Saline) 10 ml IVF Q12HR PRN PRN Reason: Saline Flush Valacyclovir HCl (Valtrex) 500 mg PO DAILY [facility] Last Admin: 09/19/18 08:18 Dose: 500 mg
[2018-09-20] MEDS: cefTRIAXone\\ROCEPHIN 2 GM in Sodium Chloride 0.9% 100 ML IVPB SCH (00:19)
[2018-09-20] MEDS: metroNIDAZOLE 500 MG in Premix Bag 1 BAG IVPB SCH ×3 (05:37→21:50)
[2018-09-20] MEDS: Sodium Chloride 0.9% 1,000 ML IV SCH ×2 (05:37→14:59)
[2018-09-20] MEDS: Lisinopril 10 MG TAB PO SCH (08:41)
[2018-09-20] MEDS: azaTHIOprine 50 MG TAB PO SCH (08:42)
[2018-09-20] MEDS: Cyanocobalamin (Vitamin B-12) 1,000 MCG TAB PO SCH (08:42)
[2018-09-20] MEDS: Acetaminophen 325 MG TAB PO SCH ×4 (08:42→21:50)
[2018-09-20] MEDS: Folic Acid 1 MG TAB PO SCH (08:42)
[2018-09-20] MEDS: Ascorbic Acid 500 mg Chewable Tablet PO SCH (08:43)
[2018-09-20] MEDS: Glimepiride 2 MG TAB PO SCH ×2 (08:43→17:08)
[2018-09-20] MEDS: valACYclovir 500 MG TAB PO SCH (08:43)
--- NOTE | 2018-09-20 13:25 | PRG ---
DATE OF SERVICE: 09/20/2018 SUBJECTIVE: Ms. Griffin has continued pain in the left lower quadrant, radiates across to the right lower quadrant. The pain is severe at times and becomes much worse when she has to have a bowel movement. She still has been having some liquidy stools. She threw up when she took her medicines this morning small amount. She really has not taken anything by mouth other than a small amount of clear liquids through the course of her hospital course and has had nothing else today. OBJECTIVE: VITAL SIGNS: Temperature 98.6, pulse 70, blood pressure 123/71. GENERAL: She is in no acute distress. LUNGS: Clear to auscultation bilaterally. HEART: Regular rate and rhythm. ABDOMEN: Tender throughout without guarding. Bowel sounds are present. EXTREMITIES: No lower extremity edema. LABORATORY DATA: White blood cell count 5.9, hemoglobin 11.0, platelets 127. IMPRESSION: Sigmoid diverticulitis versus flare of Crohn colitis. She also has cryptosporidium enteritis by positive stool sample. She has failed to respond adequately to antibiotics at this point and continues to have ongoing pain and is not adequately progressing. Therefore, I will plan for flexible sigmoidoscopy today to evaluate for mucosal colitis indicating Crohn's as the cause of her current symptoms which would indicate steroids. Up to this point, I have been trying to avoid steroids administration unnecessarily, however, we need to determine now if this is Crohn's or not causing her symptoms. RECOMMENDATIONS: 1. Flexible sigmoidoscopy today. 2. Continue antibiotics. Job ID: [id number]
[2018-09-20] MEDS: Fleet Enema 133 ML BOT FS SCH ×2 (14:16→14:55)
[2018-09-20] MEDS ORDERED: PROPOFOL 200 MG/20 ML VIAL ONE (14:54)
[2018-09-20] MEDS ORDERED: Promethazine HCl 25 MG/ML VIAL SLOW IVP PRN (16:19)
[2018-09-20] MEDS ORDERED: Promethazine HCl 25 MG/ML VIAL IM PRN (16:19)
[2018-09-20] MEDS ORDERED: Ondansetron HCl/PF 4 MG/2 ML Vial IVP PRN (16:19)
--- NOTE | 2018-09-20 17:04 | PDOC.PN ---
- Subjective Encounter Start Date: 09/20/18 Encounter Start Time: 10:30 Patient seen and examined for Sepsis. Feels gen weak. Abd pain +. Poor appetite. No new complaints. No overnight events - Objective MAR Reviewed: Yes Vital Signs & Weight: Vital Signs (12 hours) Temp Pulse Resp BP BP Pulse Ox 09/20/18 16:45 97.8 F 62 16 133/73 99 09/20/18 11:32 98.6 F 70 12 123/71 97 09/20/18 08:43 94 L 09/20/18 08:41 140/72 09/20/18 07:48 98.7 F 75 14 140/72 94 L Weight Weight 184 lb 12.8 oz I&O: 09/19/18 09/20/18 09/21/18 06:59 06:59 06:59 Intake Total 1750 2290 Balance 1750 2290 Result Diagrams: 09/19/18 04:11 09/19/18 04:11 Additional Labs: Accuchecks 09/20/18 09/20/18 09/19/18 11:56 05:29 20:55 POC Glucose 120 H 136 H 151 H 09/19/18 17:02 POC Glucose 86 Phys Exam - Physical Examination Constitutional: NAD Respiratory: no wheezing, no rhonchi Cardiovascular: RRR, no rub Gastrointestinal: soft, positive bowel sounds tend in lower quad, no guarding Musculoskeletal: no edema Neurological: moves all 4 limbs Dx/Plan - Plan DVT proph w/SCDs 1. Sepsis due to Acute Sigmoid Diverticulitis - on IV Ceftriaxone/Flagyl 2. Cryptosporidium colitis - on Alinia 3. h/o Crohns disease 4. Obesity BMI 30.8 5. Abd pain due to #1 6. HTN 7. GERD 8. DM2 9. Thrombocytopenia/CKD 2/Other issues per previous notes PLAN: Cont current Atbx Pain control Cont IVF Cont Amaryl and sliding scale Cont other meds as below AM labs Review of Systems - Review of Systems Respiratory: negative: Cough, Dry, Shortness of Breath, Hemoptysis, SOB with Excertion, Pleuritic Pain, Sputum, Wheezing Cardiovascular: negative: chest pain, palpitations, orthopnea, paroxysmal nocturnal dyspnea, edema, light headedness, other - Medications/Allergies Allergies/Adverse Reactions: Allergies Allergy/AdvReac Type Severity Reaction Status Date / Time ciprofloxacin Allergy Severe Short of Verified 10/21/13 15:37 Breath butorphanol tartrate Allergy Verified 04/16/13 19:11 [From Stadol] hydrocodone bitartrate Allergy Verified 04/16/13 19:37 [From Vicodin] meperidine HCl [From Demerol] Allergy Verified 04/16/13 19:11 morphine Allergy Verified 04/16/13 19:11 Medications: Current Medications Acetaminophen (Tylenol) 650 mg PO Q4H PRN PRN Reason: Headache/Fever/Mild Pain (1-3) Last Admin: 09/17/18 14:34 Dose: 650 mg Acetaminophen (Tylenol) 650 mg PO QID [facility] Last Admin: 09/20/18 13:39 Dose: 650 mg Ascorbic Acid (Vitamin C) 1,000 mg PO QAM [facility] Last Admin: 09/20/18 08:43 Dose: 1,000 mg Azathioprine (Imuran) 100 mg PO DAILY [facility] Last Admin: 09/20/18 08:42 Dose: 100 mg Cyanocobalamin (Vitamin B-12) 1,000 mcg PO DAILY [facility] Last Admin: 09/20/18 08:42 Dose: 1,000 mcg Dextrose/Water (Dextrose 50%) 25 gm SLOW IVP PRN PRN PRN Reason: Hypoglycemia Diphenhydramine HCl (Benadryl) 25 mg PO Q6H PRN PRN Reason: Itching & Insomnia Folic Acid (Folvite) 1 mg PO DAILY [facility] Last Admin: 09/20/18 08:42 Dose: 1 mg Glimepiride (Amaryl) 2 mg PO BID-[facility] Last Admin: 09/20/18 08:43 Dose: 2 mg Glucagon (Glucagon) 1 mg IM PRN PRN PRN Reason: Hypoglycemia Hydromorphone HCl (Dilaudid) 2 mg PO Q4H PRN PRN Reason: Severe Pain (7-10) Last Admin: 09/18/18 19:06 Dose: 2 mg Metronidazole 500 mg/ Device 100 mls @ 100 mls/hr IVPB Q8HR [facility] Last Admin: 09/20/18 13:40 Dose: 100 mls Dextrose/Water (D5w) 1,000 mls @ 0 mls/hr IV .Q0M PRN PRN Reason: Hypoglycemia Ceftriaxone Sodium 2 gm/ (Sodium Chloride) 100 mls @ 200 mls/hr IVPB Q24HR [facility] Last Admin: 09/20/18 00:19 Dose: 100 mls Sodium Chloride (Normal Saline 0.9%) 1,000 mls @ 70 mls/hr IV .[id number] [facility] Last Admin: 09/20/18 14:59 Dose: Not Given Insulin Human Lispro (Humalog) 0 units SC .MILD SLIDING SCALE PRN PRN Reason: Mild Correctional Scale Insulin Human Lispro (Humalog) 0 units SC .BEDTIME SLIDING SC PRN PRN Reason: Bedtime Correctional Scale Lisinopril (Zestril) 10 mg PO DAILY [facility] Last Admin: 09/20/18 08:41 Dose: 10 mg Nitazoxanide (Alinia) 500 mg PO BID [facility] Last Admin: 09/20/18 09:45 Dose: 500 mg Ondansetron HCl (Zofran) 4 mg IVP Q6H PRN PRN Reason: Nausea/Vomiting Last Admin: 09/18/18 21:44 Dose: 4 mg Ondansetron HCl (Pacu-Zofran) 4 mg IVP ONE PRN PRN Reason: Nausea/Vomiting Stop: 09/20/18 19:19 Pantoprazole Sodium (Protonix) 40 mg PO DAILY [facility] Last Admin: 09/20/18 08:42 Dose: 40 mg Promethazine HCl (Pacu-Phenergan) 6.25 mg SLOW IVP ONE PRN PRN Reason: Nausea/Vomiting Stop: 09/20/18 19:19 Promethazine HCl (Pacu-Phenergan) 6.25 mg IM ONE PRN PRN Reason: Nausea/Vomiting Stop: 09/20/18 19:19 Sodium Chloride (Flush - Normal Saline) 10 ml IVF Q12HR PRN PRN Reason: Saline Flush Valacyclovir HCl (Valtrex) 500 mg PO DAILY [facility] Last Admin: 09/20/18 08:43 Dose: 500 mg
--- NOTE | 2018-09-20 18:20 | OP ---
DATE OF PROCEDURE: 09/20/2018 PROCEDURE PERFORMED: Colonoscopy. PREOPERATIVE DIAGNOSIS: Assess for activity of Crohn disease. The patient with suspected diverticulitis versus infectious colitis versus Crohn colitis. DESCRIPTION OF PROCEDURE: Informed consent was obtained. The patient was sedated with total intravenous anesthesia. The rectal exam was performed and was normal. The preparation quality was adequate. She was only prepped with an enema. There was no significant residual stool in the colon. The colonoscope was advanced to the anastomosis without difficulty. The colonic mucosa appeared normal throughout. There was a very edematous segment, which was somewhat narrowed in the mid sigmoid colon in an area of diverticulosis. This is consistent with diverticulitis. Retroflexed views in the rectum are unremarkable. IMPRESSION: 1. Edematous segment in the mid sigmoid colon in the cindy-diverticular segment consistent with diverticulitis. 2. Otherwise, normal colonic mucosa without evidence of active Crohn disease or inflammatory colitis or significant infectious colitis causing ulceration or inflammation. RECOMMENDATIONS: 1. Continue antibiotics for diverticulitis. 2. Continue the Alinia for the Cryptosporidium positive stool. 3. Continue to avoid steroids for now. 4. Advance her diet as she tolerates. Job ID: [id number]
[2018-09-21] MEDS: cefTRIAXone\\ROCEPHIN 2 GM in Sodium Chloride 0.9% 100 ML IVPB SCH ×2 (00:39→23:12)
[2018-09-21] MEDS: Ondansetron PF 4 MG/2 ML Vial IVP PRN (00:42)
[2018-09-21] MEDS: metroNIDAZOLE 500 MG in Premix Bag 1 BAG IVPB SCH ×3 (06:11→21:45)
[2018-09-21 09:14] LABS: #Eosinphils 0.2 thou/uL (0.0-0.7); #Lymphocytes 1.1 thou/uL (1.20-3.40); #Monocytes 0.4 thou/uL (0.11-0.59); #Neutrophils 2.8 thou/uL (1.40-6.50); %Eosinophils 3.8 % (0.0-10.0); %Lymphocytes 24.5 % (21.0-51.0); %Monocytes 8.1 % (0.0-10.0); %Neutrophils 62.5 % (42.0-75.0); Hemoglobin 11.9 g/dL (12.0-16.0); Mean Corpuscular HGB CONC 32.9 g/dL (32.0-36.0); Mean Corpuscular Hemoglobin 32.5 pg (27.0-31.0); Mean Corpuscular Volume 98.9 fL (78.0-98.0); Mean Platelet Volume 8.6 fL (7.4-10.4); Platelet Count 160 thou/uL (130-400); RBC Distribution Width 13.3 % (11.5-14.5); Red Blood Cell (RBC) Count 3.66 mill/uL (4.20-5.40); White Blood Cell (WBC) Count 4.5 thou/uL (4.8-10.8)
[2018-09-21] MEDS: Acetaminophen 325 MG TAB PO SCH ×4 (09:17→20:37)
[2018-09-21] MEDS: Ascorbic Acid 500 mg Chewable Tablet PO SCH (09:17)
[2018-09-21] MEDS: Folic Acid 1 MG TAB PO SCH (09:17)
[2018-09-21] MEDS: Lisinopril 10 MG TAB PO SCH (09:18)
[2018-09-21] MEDS: Sodium Chloride 0.9% 1,000 ML IV SCH ×2 (09:19→17:48)
[2018-09-21] MEDS: azaTHIOprine 50 MG TAB PO SCH (09:20)
[2018-09-21] MEDS: Cyanocobalamin (Vitamin B-12) 1,000 MCG TAB PO SCH (09:20)
[2018-09-21] MEDS: Glimepiride 2 MG TAB PO SCH ×2 (09:21→17:27)
[2018-09-21] MEDS: valACYclovir 500 MG TAB PO SCH (09:22)
[2018-09-21 09:40] LABS: ALT (SGPT) 13 U/L (8-55); AST (SGOT) 14 U/L (5-34); Albumin 3.5 g/dL (3.5-5.0); Alkaline Phosphatase 54 U/L (40-150); Anion Gap 15 mmol/L (10-20); BUN (Urea Nitrogen) Less than 4 mg/dL (9.8-20.1); Bilirubin, Total 0.4 mg/dL (0.2-1.2); Calc. Creatinine Clearance 135 mL/min (70-130); Calcium 8.5 mg/dL (7.8-10.44); Carbon Dioxide 20 mmol/L (22-29); Chloride 110 mmol/L (98-107); Estimated GFR-MDRD Greater than 90; Globulin 2.6 g/dL (2.4-3.5); Glucose 123 mg/dL (70-105); Magnesium 1.6 mg/dL (1.6-2.6); Phosphorus 3.4 mg/dL (2.3-4.7); Potassium 3.5 mmol/L (3.5-5.1); Protein, Total 6.1 g/dL (6.0-8.3); Sodium 141 mmol/L (136-145)
[2018-09-21] MEDS ORDERED: metFORMIN 500 MG TAB PO SCH (10:30)
--- NOTE | 2018-09-21 14:04 | PRG ---
DATE OF SERVICE: 09/21/2018 SUBJECTIVE: Ms. Griffin is feeling much better today. Her pain is improving. She had a small slightly formed stool today. She has had no fever. She would like to advance her diet. OBJECTIVE: VITAL SIGNS: Temperature 98.3, pulse 72, blood pressure 143/83. GENERAL: She is in no acute distress. Alert and oriented x3. EYES: Have no scleral icterus. LUNGS: Clear to auscultation bilaterally. HEART: Regular rate and rhythm without murmur. ABDOMEN: Soft. She is much less tender in the right abdomen, but screen tender in the left lower quadrant. Bowel sounds are present. EXTREMITIES: No lower extremity edema. LABORATORY DATA: White blood cell count 4.5, hemoglobin 11.9, platelets 160. Creatinine 0.63, bilirubin 0.4, AST 14, ALT 13, alkaline phosphatase 54. Her fecal calprotectin came back less than 16. IMPRESSION: 1. Acute diverticulitis, now finally showing improvement with the IV antibiotics. 2. Cryptosporidium positive stool antigen. Given her immune suppression, the plan is to continue treatment for a total of 14 days with Alinia 500 mg twice daily. 3. Crohn disease. She has had small-bowel Crohn's and is status post resection, now appears to be in clinical remission from a Crohn's standpoint with Stelara and azathioprine. Colonoscopy yesterday showed normal colonic mucosa except for an edematous swollen segment in the area of the diverticulosis in the sigmoid, which again is consistent with acute diverticulitis rather than active Crohn's. RECOMMENDATIONS: 1. Advance her diet today. 2. Continue antibiotics. 3. If her pain continues to improve tomorrow and she is tolerating solid diet, then hopefully we could switch to oral antibiotics and discharge home tomorrow. Job ID: [id number]
[2018-09-21] MEDS: metFORMIN 500 MG TAB PO SCH (17:26)
--- NOTE | 2018-09-21 17:40 | PDOC.PN ---
- Subjective Encounter Start Date: 09/21/18 Encounter Start Time: 15:00 Patient seen and examined for Acute Diverticulitis. Diarrhea improving. No new complaints. No overnight events - Objective MAR Reviewed: Yes Vital Signs & Weight: Vital Signs (12 hours) Temp Pulse Resp BP BP Pulse Ox 09/21/18 15:00 98.2 F 68 13 147/88 H 97 09/21/18 11:59 98.3 F 72 14 143/83 H 97 09/21/18 09:18 172/93 H 09/21/18 08:16 97 09/21/18 08:15 98.4 F 76 16 172/93 H 97 Weight Weight 184 lb 12.8 oz I&O: 09/20/18 09/21/18 09/22/18 06:59 06:59 06:59 Intake Total 2290 990 1420 Balance 2290 990 1420 Result Diagrams: 09/21/18 08:51 09/21/18 08:51 Additional Labs: Accuchecks 09/21/18 09/21/18 09/21/18 16:09 11:59 05:49 POC Glucose 138 H 143 H 112 H 09/20/18 20:44 POC Glucose 159 H Phys Exam - Physical Examination Constitutional: NAD Respiratory: no wheezing, no rhonchi Cardiovascular: RRR, no rub Gastrointestinal: soft, non-tender, positive bowel sounds Musculoskeletal: no edema Neurological: moves all 4 limbs Dx/Plan - Plan DVT proph w/SCDs 1. Sepsis due to Acute Sigmoid Diverticulitis - 2. Cryptosporidium colitis - on Alinia 3. h/o Crohns disease 4. Obesity BMI 30.8 5. Abd pain due to #1 6. HTN 7. GERD 8. DM2 9. Thrombocytopenia/CKD 2/Other issues per previous notes PLAN: Cont IV Ceftriaxone/Flagyl Pain control Cont IVF - reduce rate Consult [employer] Work[employer] Cont Amaryl and sliding scale Resume Metformin Cont other meds as below Review of Systems - Review of Systems Respiratory: negative: Cough, Dry, Shortness of Breath, Hemoptysis, SOB with Excertion, Pleuritic Pain, Sputum, Wheezing Cardiovascular: negative: chest pain, palpitations, orthopnea, paroxysmal nocturnal dyspnea, edema, light headedness, other - Medications/Allergies Allergies/Adverse Reactions: Allergies Allergy/AdvReac Type Severity Reaction Status Date / Time ciprofloxacin Allergy Severe Short of Verified 10/21/13 15:37 Breath butorphanol tartrate Allergy Verified 04/16/13 19:11 [From Stadol] hydrocodone bitartrate Allergy Verified 04/16/13 19:37 [From Vicodin] meperidine HCl [From Demerol] Allergy Verified 04/16/13 19:11 morphine Allergy Verified 04/16/13 19:11 Medications: Current Medications Acetaminophen (Tylenol) 650 mg PO Q4H PRN PRN Reason: Headache/Fever/Mild Pain (1-3) Last Admin: 09/17/18 14:34 Dose: 650 mg Acetaminophen (Tylenol) 650 mg PO QID [facility] Last Admin: 09/21/18 17:26 Dose: 650 mg Ascorbic Acid (Vitamin C) 1,000 mg PO QAM [facility] Last Admin: 09/21/18 09:17 Dose: 1,000 mg Azathioprine (Imuran) 100 mg PO DAILY [facility] Last Admin: 09/21/18 09:20 Dose: 100 mg Cyanocobalamin (Vitamin B-12) 1,000 mcg PO DAILY [facility] Last Admin: 09/21/18 09:20 Dose: 1,000 mcg Dextrose/Water (Dextrose 50%) 25 gm SLOW IVP PRN PRN PRN Reason: Hypoglycemia Diphenhydramine HCl (Benadryl) 25 mg PO Q6H PRN PRN Reason: Itching & Insomnia Folic Acid (Folvite) 1 mg PO DAILY [facility] Last Admin: 09/21/18 09:17 Dose: 1 mg Glimepiride (Amaryl) 2 mg PO BID-WM [facility] Last Admin: 09/21/18 17:27 Dose: 2 mg Glucagon (Glucagon) 1 mg IM PRN PRN PRN Reason: Hypoglycemia Hydromorphone HCl (Dilaudid) 2 mg PO Q4H PRN PRN Reason: Severe Pain (7-10) Last Admin: 09/18/18 19:06 Dose: 2 mg Metronidazole 500 mg/ Device 100 mls @ 100 mls/hr IVPB Q8HR [facility] Last Admin: 09/21/18 15:44 Dose: 100 mls Dextrose/Water (D5w) 1,000 mls @ 0 mls/hr IV .Q0M PRN PRN Reason: Hypoglycemia Ceftriaxone Sodium 2 gm/ (Sodium Chloride) 100 mls @ 200 mls/hr IVPB Q24HR [facility] Last Admin: 09/21/18 00:39 Dose: 100 mls Sodium Chloride (Normal Saline 0.9%) 1,000 mls @ 70 mls/hr IV .[id number] [facility] Last Admin: 09/21/18 09:19 Dose: 1,000 mls Insulin Human Lispro (Humalog) 0 units SC .MILD SLIDING SCALE PRN PRN Reason: Mild Correctional Scale Insulin Human Lispro (Humalog) 0 units SC .BEDTIME SLIDING SC PRN PRN Reason: Bedtime Correctional Scale Lisinopril (Zestril) 10 mg PO DAILY [facility] Last Admin: 09/21/18 09:18 Dose: 10 mg Metformin HCl (Glucophage) 1,000 mg PO BID-[facility] Last Admin: 09/21/18 17:26 Dose: 1,000 mg Nitazoxanide (Alinia) 500 mg PO BID [facility] Last Admin: 09/21/18 09:21 Dose: 500 mg Ondansetron HCl (Zofran) 4 mg IVP Q6H PRN PRN Reason: Nausea/Vomiting Last Admin: 09/21/18 00:42 Dose: 4 mg Pantoprazole Sodium (Protonix) 40 mg PO DAILY [facility] Last Admin: 09/21/18 09:20 Dose: 40 mg Sodium Chloride (Flush - Normal Saline) 10 ml IVF Q12HR PRN PRN Reason: Saline Flush Valacyclovir HCl (Valtrex) 500 mg PO DAILY [facility] Last Admin: 09/21/18 09:22 Dose: 500 mg
[2018-09-22] MEDS: metroNIDAZOLE 500 MG in Premix Bag 1 BAG IVPB SCH ×2 (05:07→13:04)
[2018-09-22 08:22] VITALS: TEMP 98.4
[2018-09-22] MEDS: Lisinopril 10 MG TAB PO SCH (08:37)
[2018-09-22] MEDS: azaTHIOprine 50 MG TAB PO SCH (08:37)
[2018-09-22] MEDS: Ascorbic Acid 500 mg Chewable Tablet PO SCH (08:38)
[2018-09-22] MEDS: Folic Acid 1 MG TAB PO SCH (08:38)
[2018-09-22] MEDS: Acetaminophen 325 MG TAB PO SCH ×2 (08:39→12:39)
[2018-09-22] MEDS: Cyanocobalamin (Vitamin B-12) 1,000 MCG TAB PO SCH (08:39)
[2018-09-22] MEDS: metFORMIN 500 MG TAB PO SCH (08:40)
[2018-09-22] MEDS: Glimepiride 2 MG TAB PO SCH (08:40)
[2018-09-22] MEDS: valACYclovir 500 MG TAB PO SCH (10:16)
[2018-09-22 11:51] VITALS: BP 167/94
[2018-09-22] MEDS: Sodium Chloride 0.9% 1,000 ML IV SCH (13:04)
--- NOTE | 2018-09-23 09:20 | DIS ---
DATE OF ADMISSION: 09/16/2018 DATE OF DISCHARGE: 09/22/2018 DISCHARGE DISPOSITION: Home. FOLLOWUP: 1. Follow up with primary care physician, Dr. Carol Garcia in 1 week. 2. Follow up with Dr. Gerardo Gilbert in 2 to 3 weeks. 3. Follow up with Dr. Carrie Peterson in 3 to 4 weeks. DISCHARGE MEDICATIONS: 1. Zofran as needed. 2. Omnicef 300 mg twice a day for next 3 days. 3. Flagyl 500 mg 3 times daily for next 3 days. 4. Alinia 500 mg b.i.d. for 10 days. All other home medications were left unchanged. The patient was seen on the day of discharge. Denies any new complaints. No chest pain, shortness of breath, or palpitations. Diarrhea has significantly improved. INPATIENT PROCEDURES: On September 20, 2018, the patient underwent colonoscopy that showed edematous segment in the mid sigmoid colon consistent with acute diverticulitis. Otherwise, the colonic mucosa appeared normal. BRIEF HOSPITAL COURSE: The patient is a 52-year-old female with Crohn disease and diverticulosis, presented to the hospital with left lower quadrant abdominal pain. CT scan of the abdomen was consistent with acute sigmoid diverticulitis. She was placed on IV antibiotics. Stool workup was positive for Cryptosporidium. Blood cultures remained negative. She showed slow and gradual improvement with above measures. She will complete a total of 7-day course of antibiotics for acute diverticulitis and 14-day course for Cryptosporidium colitis. She also under underwent colonoscopy as discussed above. FINAL DIAGNOSES: 1. Acute sigmoid diverticulitis with sepsis. 2. Cryptosporidium colitis. 3. History of Crohn disease, on immunosuppressants. 4. Obesity with a BMI of 30.8. 5. Abdominal pain secondary to acute sigmoid diverticulitis. 6. Hypertension. 7. Gastroesophageal reflux disease. 8. Diabetes mellitus, type 2. 9. Thrombocytopenia. 10. Chronic kidney disease, stage 2. 11. Family history of hypertension and diabetes. 12. Multiple medication allergies. PLAN: Plan of care was discussed with the patient in detail. She stated understanding. Job ID: [id number]
== END 2018-09-22 13:47 | disposition home or self-care (01) | DRG 872 ==
LOC: ERS 18:07 → SURG A 23:20
PROVIDERS: ADMIT Internal Medicine; ATTEND Internal Medicine
PROC: 0DJD8ZZ Inspection of Lower Intestinal Tract, Via Natural or Artificial Opening Endoscopic (ICD-10-PCS; principal; 2018-09-20)
DX: A41.9 Sepsis, unspecified organism (principal); K57.32 Diverticulitis of large intestine without perforation or abscess without bleeding; K50.019 Crohn's disease of small intestine with unspecified complications; A07.2 Cryptosporidiosis; F17.210 Nicotine dependence, cigarettes, uncomplicated; N28.9 Disorder of kidney and ureter, unspecified; K52.89 Other specified noninfective gastroenteritis and colitis; E78.5 Hyperlipidemia, unspecified; K75.81 Nonalcoholic steatohepatitis (NASH); K21.9 Gastro-esophageal reflux disease without esophagitis; N18.2 Chronic kidney disease, stage 2 (mild); D69.6 Thrombocytopenia, unspecified; E11.22 Type 2 diabetes mellitus with diabetic chronic kidney disease; I12.9 Hypertensive chronic kidney disease with stage 1 through stage 4 chronic kidney disease, or unspecified chronic kidney disease; E03.9 Hypothyroidism, unspecified; E66.9 Obesity, unspecified; Z90.710 Acquired absence of both cervix and uterus; Z88.5 Allergy status to narcotic agent; Z79.82 Long term (current) use of aspirin; Z79.84 Long term (current) use of oral hypoglycemic drugs; Z79.899 Other long term (current) drug therapy; Z79.52 Long term (current) use of systemic steroids; Z90.49 Acquired absence of other specified parts of digestive tract; Z88.2 Allergy status to sulfonamides; Z68.30 Body mass index [BMI] 30.0-30.9, adult
CPT/HCPCS: 36415; 36416; 74177; 80048; 80053; 81003; 83605; 83735; 84100; 85025; 87040; 87045; 87046; 87324; 87328; 87329; 87449; 87899; 96361; 96365; 96367; 96375; J0696; J1100; J1885; J2405; J2704; J7050; J7500; Q9966; Q9967

== ENCOUNTER 2019-03-12 08:43 | Outpatient (CLI) | payer BC ==
[2019-03-12 10:17] LABS: Estimated GFR-MDRD - POC Greater than 90
--- NOTE | 2019-03-12 11:42 | ULT ---
HEPATIC ULTRASOUND WITH DOPPLER: Date: 03/12/19 PROVIDED CLINICAL HISTORY: Cirrhosis. FINDINGS: The visualized abdominal aorta and IVC appear normal. The liver appears enlarged, measuring about 20. 4 cm in craniocaudal dimension at the right hepatic lobe. There is increased echogenicity of the hepa tic parenchyma relative to the right kidney, compatible with fatty infiltration. There is no evidence for mass or intrahepatic biliary ductal dilatation. The common duct is prominent, measuring 9.0 mm. The gallbladder is not visualized, compatible with the provided clinical history of prior cholecystec roby. The spleen appears enlarged, measuring about 12.9 cm in craniocaudal dimension. No focal splenic abno rmality is evident. Color Doppler and spectral analysis of the hepatic portal, hepatic venous, hepatic arterial, splenic venous, and splenic arterial waveforms demonstrates normal direction of flow. IMPRESSION: 1. Fatty infiltration of the liver and hepatomegaly. 2. Mild splenomegaly. 3. Normal hepatic Doppler. 4. Prominence of the common duct, presumably on the basis of post cholecystectomy status. POS: [facility]
--- NOTE | 2019-03-12 12:11 | CT ---
CT Abdomen Pelvis W WO con History: Complex renal cyst Comparison: CT abdomen and pelvis September 16, 2018. CT abdomen pelvis August 29, 2017 Findings: The mass interpolar right kidney has low-grade increase in transverse dimension by approxim ately 2 mm. There is low-grade internal enhancement and washout. Similar appearance a retroperitoneal periaortic lymph node is at the level of the renal veins. No hyd ronephrosis. Continued wall thickening of the sigmoid colon without any adjacent acute active diverticulitis. Moderate diverticular disease. Suture material mildly cecal apex. Aortic contour is nonaneurysmal. Prior cholecystectomy. Subtle nodular contour the liver. Splenic siz e upper limits of normal. Mild hypertrophy of the left adrenal gland, similar. No acute osseous abnormality. Mild facet arthrosis lower lumbar spine. Impression: 1. Low-grade interval increase transverse dimension right interpolar renal mass suggestive of low-gra de malignancy. 2. No evidence for metastatic disease. Right renal vein is patent. 3. No abnormal enhancing urothelial mass. 4. Mild right renal pelviectasis. 5. Findings of chronic inflammatory bowel disease. 6. Subtle nodular contour of the liver suggesting cirrhosis. 7. Splenic size upper limits of normal can be seen with early portal hypertension. 8. Unchanged asymmetric hypertrophy left adrenal gland. 9. Likely small sebaceous cyst right medial gluteal cleft.
== END 2019-03-12 08:44 | disposition home or self-care (01) ==
LOC: SCSULT 08:43
PROVIDERS: ATTEND Physician Assistant Medical
DX: N28.1 Cyst of kidney, acquired (principal); K74.60 Unspecified cirrhosis of liver; K50.00 Crohn's disease of small intestine without complications; N28.89 Other specified disorders of kidney and ureter; R16.2 Hepatomegaly with splenomegaly, not elsewhere classified; K76.0 Fatty (change of) liver, not elsewhere classified; E27.8 Other specified disorders of adrenal gland; Z90.49 Acquired absence of other specified parts of digestive tract
CPT/HCPCS: 74178; 76705; 82565

== ENCOUNTER 2019-04-07 08:50 | Outpatient (CLI) | payer BC ==
[2019-04-07 09:20] LABS: Estimated GFR-MDRD - POC Greater than 90
[2019-04-07] MEDS ORDERED: Iopamidol 370 76% 100 ML VIAL ONE (10:11)
--- NOTE | 2019-04-07 11:11 | CT ---
CT CHEST WITH IV CONTRAST: INDICATIONS: Right renal mass. ferry terminal supervisor tobacco use. FINDINGS: The lungs are well aerated and clear of infiltrate. There is no effusion. No evidence of pulmonary ma ss or nodule. The peripheral interstitium is upper normal. The mediastinum is unremarkable. No adenopathy. The upper abdomen is unremarkable. IMPRESSION: Unremarkable CT chest. POS: [facility]
--- NOTE | 2019-04-07 11:29 | CT ---
CT ANGIOGRAM OF THE ABDOMEN WITH IV CONTRAST AND 3D POSTPROCESSING: Date: 04/07/19 HISTORY: Right renal mass. FINDINGS: Comparison made with the CT scan of 03/12/19. There are vascular calcifications without evidence of aneurysmal dilatation of the abdominal aorta. T he abdominal aortic lumen is well opacified without intimal flap to suggest dissection. There is good flow in the celiac axis, SMA, and ORACIO. There are two right-sided and one left-sided renal artery. There is calcified plaque at the origin of the left renal artery causing minimal stenosis. The right renal mass noted on the previous exam is u nchanged. No renal vein thrombosis is seen on either side. Remainder of the findings are unchanged since 03/12/19. IMPRESSION: Two right renal arteries and one left renal artery with minimal stenosis at the origin of the left re nal artery. POS: [facility]
== END 2019-04-07 08:51 | disposition home or self-care (01) ==
LOC: CT 08:50
PROVIDERS: ATTEND Urology
DX: N28.89 Other specified disorders of kidney and ureter (principal); N28.1 Cyst of kidney, acquired; E11.9 Type 2 diabetes mellitus without complications; I70.1 Atherosclerosis of renal artery; Z72.0 Tobacco use
CPT/HCPCS: 71260; 74175; 82565; Q9967

== ENCOUNTER 2019-11-19 07:58 | Outpatient (CLI) | payer BC ==
--- NOTE | 2019-11-19 09:24 | CT ---
CT ABDOMEN WITH AND WITHOUT CONTRAST: Date: 11/19/2019 Postcontrast images were obtained in a portal venous and delayed venous phase. INDICATION: Follow-up right renal mass. FINDINGS: The complex lesion in the right renal cortex is again noted. This region continued to be hyperdense o n noncontrast study with density recorded at 60 Hounsfield units. On the portal venous phase, the den sity is recorded at 70 and on the delayed venous phase there is increased washout today with density recorded at 25. The size of this complex lesion has not significantly changed. It continues to measure approximately 2.0 cm width in the axial plane x 1.5 cm AP dimension in the axial plane. Kidneys are otherwise unremarkable. Collecting structures unremarkable. Collecting structures are opa cified on delayed images. There continues to be mild hyperplasia of the left adrenal gland which is stable. Numerous retroperitoneal lymph nodes are seen in the periaortic regions at the level of the renal vei ns. These have been described previously and appear stable. They are nonspecific, with the largest be ing a small aortocaval node measuring 1.2 cm. The lung bases are clear. The liver, spleen, and pancreas are unremarkable. Post cholecystectomy change. Stomach and duodenum u nremarkable. Aorta shows atherosclerotic calcification. No aneurysm. The visualized bowel loops are unremarkable. Osseous structures are unremarkable. IMPRESSION: 1. The complex lesion involving the right kidney shows no significant change in size or appearance. Increased washout is observed today on the delayed study. 2. Nonspecific retroperitoneal lymph nodes are again noted. These lymph nodes are increased in numbe r, but are nonspecific in size. Size and number of these nodes appear stable. POS: [facility]
[2019-11-19] MEDS ORDERED: Iopamidol 370 76% 100 ML VIAL ONE (09:55)
== END 2019-11-19 07:59 | disposition home or self-care (01) ==
LOC: BICCT 07:58
PROVIDERS: ATTEND Urology
DX: N28.89 Other specified disorders of kidney and ureter (principal); N28.1 Cyst of kidney, acquired
CPT/HCPCS: 36415; 74170; 80053; 82105; 85025; 85610; 86140; Q9967

== ENCOUNTER 2020-09-08 08:42 | Outpatient (CLI) | payer BC ==
[2020-09-08 09:18] LABS: Estimated GFR-MDRD - POC Greater than 90
[2020-09-08] MEDS ORDERED: Magnevist 469MG/ML 20 ML VIAL ONE (11:38)
== END 2020-09-08 08:43 | disposition home or self-care (01) ==
LOC: BICMRI 08:42
PROVIDERS: ATTEND Internal Medicine Gastroenterology
DX: K74.60 Unspecified cirrhosis of liver (principal); K50.00 Crohn's disease of small intestine without complications; N28.1 Cyst of kidney, acquired; K76.0 Fatty (change of) liver, not elsewhere classified
CPT/HCPCS: 74183; 82565; A9579

== ENCOUNTER 2021-11-02 07:43 | Outpatient (CLI) | payer BC ==
[2021-11-02] MEDS ORDERED: Iopamidol-370 76% 500 ML 1 ML ONE (10:19)
[2021-11-02 10:26] LABS: Estimated GFR-MDRD - POC Greater than 90
== END 2021-11-02 07:44 | disposition home or self-care (01) ==
LOC: BICCT 07:43
PROVIDERS: ATTEND Urology
DX: K50.00 Crohn's disease of small intestine without complications (principal); K74.60 Unspecified cirrhosis of liver; N28.89 Other specified disorders of kidney and ureter; N28.1 Cyst of kidney, acquired
CPT/HCPCS: 74170; 76770; 82565